=== PATIENT | female | born 1930 | race African-American/Black ===

== ENCOUNTER 2016-03-18 20:37 | Emergency (ER) | payer MEDICARE, OTHER ==
[~2016-03-18] VITALS: Ht 162.6 cm; Wt 82.6 kg
--- NOTE | 2016-03-18 21:50 | Emergency Room Report ---
History of Present Illness General Chief Complaint: Dyspnea/Respdistress Source: Patient Present Illness HPI Is an 85-year-old female with a history of atrial fibrillation on Xarelto. She has for tooth extractions 6 days ago. She started back on Xarelto a few days ago. Today when the tooth that was extracted was bleeding. Oozing blood. No trauma. No other complaint. Unable to stop the bleeding. Allergies: Coded Allergies: SULFA (SULFONAMIDE ANTIBIOTICS) (Verified Allergy, Unknown, 03/18/16) Patient History Past Medical History: see triage record, old chart reviewed, DM, HTN, CAD, AFib Past Surgical History: other Pertinent Family History: none Social History: Denies: smoking Now: No Immunizations: other Reviewed Nursing Documentation: PMH: Agreed, PSxH: Agreed Nursing Documentation-PMH Hx Hypertension: Yes - Pulmonary hypertension, CHF, Tachycardia Hx Pacemaker: Yes Review of Systems Eye: Denies: blurred vision, eye pain ENT: Denies: ear pain, nose congestion, throat swelling Respiratory: Denies: cough, shortness of breath Cardiovascular: Denies: chest pain, palpitations Gastrointestinal: Denies: abdominal pain, diarrhea, nausea, vomiting Musculoskeletal: Denies: back pain, joint pain Skin: Denies: rash Neurological: Denies: headache, numbness Endocrine: Denies: increased thirst, increased urine Hematologic/Lymphatic: Denies: easy bruising All Other Systems: negative except mentioned in HPI Physical Exam Vital Signs Date Time Temp Pulse Resp B/P Pulse Ox O2 Delivery O2 Flow Rate FiO2 03/18/16 21:28 97.7 79 16 134/73 91 Room Air vitals normal. Repeat oxygenation was 95% Sp02 EP Interpretation: reviewed, normal General Appearance: well appearing, no apparent distress, alert Head: normocephalic, atraumatic Eyes: bilateral eye EOMI, bilateral eye PERRL ENT: hearing grossly normal, normal pharynx, other - Oropharynx: Right upper incisor area is oozing blood. No abscess. Neck: full range of motion, supple, no meningismus Respiratory: chest non-tender, lungs clear, normal breath sounds Cardiovascular #1: regular rate, rhythm, no murmur Gastrointestinal: normal bowel sounds, non tender, no mass, no organomegaly, no bruit, non-distended Musculoskeletal: back normal, gait/station normal, normal range of motion Psychiatric: mood/affect normal Skin: warm/dry Procedures Additional Procedure Procedure Narrative Procedure: Control bleeding Indication: Dental bleeding Description: I did local injection with 1% lidocaine with epinephrine. A total of 2 mL injected. I evacuated the old blood in the socket. There is no active bleeding. I place a small surgicel and then pressure gauze over. No active bleeding after pair observation. Patient tolerated procedure without a problem. Medical Decision Making Diagnostic Impression: Primary Impression: Post-op bleeding Qualified Codes: L76.22 - Postprocedural hemorrhage of skin and subcutaneous tissue following other procedure ER Course Patient presents with postoperative bleeding. This is from her Xarelto. He has not taking her dose for tonight. So patient to hold off for a week. She is to followup with oral surgeon tomorrow. Labs unremarkable. Last Vital Signs Date Time Temp Pulse Resp B/P Pulse Ox O2 Delivery O2 Flow Rate FiO2 03/18/16 21:28 97.7 79 16 134/73 91 Room Air Status: improved Disposition: HOME, SELF-CARE Condition: Stable Additional Instructions: Stop your Xarelto for one week. Followup with her surgeon tomorrow. Return if worse. RAQUEL JOHNSON M.D. Mar 18, 2016 21:50
[2016-03-18 22:06] VITALS: BP 136/73
[2016-03-18 22:11] LABS: MEAN CORPUSCULAR HEMOGLOBIN 32.5 PG (27.0-31.0); MEAN CORPUSCULAR HGB CONC 31.8 G/DL (32.0-36.0); MEAN CORPUSCULAR VOLUME 102 FL (80-99); MEAN PLATELET VOLUME 7.8 FL (6.5-10.1); PLATELET COUNT 239 K/UL (150-450); RED BLOOD COUNT 4.05 M/UL (4.20-5.40); RED CELL DISTRIBUTION WIDTH 14.3 % (11.6-14.8); WHITE BLOOD COUNT 6.4 K/UL (4.8-10.8)
[2016-03-18 22:21] LABS: EOSINOPHILS % (AUTO) 1.1 % (0.0-3.0); LYMPHOCYTES % (AUTO) 22.7 % (20.0-45.0); MONOCYTES % (AUTO) 20.5 % (1.0-10.0); NEUTROPHILS % (AUTO) 54.3 % (45.0-75.0)
[2016-03-18 22:22] LABS: BASOPHILS % (AUTO) 0.1 % (0.0-2.0)
[2016-03-18 22:30] LABS: INR 1.3 (0.9-1.1); PROTHROMBIN TIME 13.2 SEC (9.30-11.50)
[2016-03-18] MEDS ORDERED: Surgicel 4in x 8in TOPIC ONE (22:30)
[2016-03-18 22:58] VITALS: BP_SYST 130; BP_SYST 136; BP_DIAS 70; BP_DIAS 73
[2016-03-18 23:02] LABS: ANION GAP 13 (5-15); CALCIUM 9.1 mg/dL (8.6-10.2); CARBON DIOXIDE 25 mEQ/L (20-30); CHLORIDE 99 mEQ/L (98-107); CREATININE 1.1 mg/dL (0.5-0.9); HEMOLYSIS 16; POTASSIUM 4.2 mEQ/L (3.4-4.9); SODIUM 137 mEQ/L (135-145)
== END 2016-03-18 22:59 | disposition home or self-care (01) ==
LOC: EMR 21:49
DX: L76.22 Postprocedural hemorrhage of skin and subcutaneous tissue following other procedure (principal); Y84.8 Other medical procedures as the cause of abnormal reaction of the patient, or of later complication, without mention of misadventure at the time of the procedure; I48.91 Unspecified atrial fibrillation; Z79.01 Long term (current) use of anticoagulants; I10 Essential (primary) hypertension; I50.9 Heart failure, unspecified; Z95.0 Presence of cardiac pacemaker; E11.9 Type 2 diabetes mellitus without complications; I25.10 Atherosclerotic heart disease of native coronary artery without angina pectoris; Z88.2 Allergy status to sulfonamides
CPT/HCPCS: 36415; 80048; 85025; 85610; 85730; 99284